=== PATIENT | male | born 1955 | race Caucasian/White ===

== ENCOUNTER 2023-08-22 07:18 | Inpatient (IN) ==
--- NOTE | 2023-08-22 07:47 | Emergency Department Note ---
Impression & Plan Complete heart block ED Provider Note Diagnosis: Complete heart block Disposition: Admission CHIEF COMPLAINT: Short of breath dizziness HPI: Patient is a 68-year-old male presenting with complaint of dizziness and shortness of breath. Patient states that his symptoms are worse with exertion. Patient states that he has felt off for approximately 1 month's time but over the past 2 days his who is a nurse has been checking his blood pressure and the automatic cuff has been stating that his pulse has been low. Patient did not take his blood pressure medications of lisinopril and atenolol this morning. Patient is not ate or drink anything since last evening. Patient does not have a general adoption social worker that he follows with regularly. Patient's father at approximately the patient's current age required a pacemaker for unknown reason. PAST MEDICAL HISTORY: See Below PAST SURGICAL HISTORY: See Below SOCIAL HISTORY: See Below HOME MEDICATIONS: See Below ALLERGIES: See Below VITALS: See Below PHYSICAL EXAMINATION: GENERAL: Well appearing, well nourished, NAD, non-toxic. EYE EXAM: Normal conjunctiva. OROPHARYNX: Moist mucus membranes. Grossly normal dentition. NECK: Supple, LUNGS: Clear to auscultation. Normal chest wall mechanics. HEART: Bradycardic ABDOMEN: Abdomen soft, non-tender, normo-active bowel sounds, no masses, no rebound or guarding BACK: No CVA TTP. SKIN: No rashes and no bruising. UPPER EXTREMITIES: Upper extremities are grossly normal LOWER EXTREMITIES: Grossly normal, no edema. NEURO EXAM: A&O x3,, normal speech, moves all 4 extremities PSYCH: Cooperative MEDICAL DECISION MAKING: Reviewed external documents: History obtained from: Patient, ER Course: Patient is a 68-year-old male presenting with complaint of feeling short of breath and dizziness. Patient states his blood pressure cuff yesterday started telling him that his pulse was low. Patient upon being hooked up to the fish warden in the emergency room found to be in complete heart block. Patient had stable blood pressure admitted to medicine service. Patient has no electrolyte abnormalities to cause the bradycardia at this time. Patient not taking any of his blood pressure medications this morning and has not ate or drink anything this morning. Labs (independently interpreted) are significant for: Potassium normal Imaging results (independently interpreted): Chest x-ray clear EKG interpretation (independently interpreted): complete heart block Medications given: Normal saline Consultants: Cardiology Dr. Guerra, discussed patient's EKG presentation stable vital signs other than heart rate recommends adding Lyme testing and thyroid testing on to patient's workup as well as keeping him n.p.o. Admission to medicine service will see in consult and plan for pacemaker as needed Medical decision rules: Chronic conditions affecting care: Triage Nursing notes reviewed and agree them. Vital Signs: reviewed and remarkable for: no significant abnormalities Critical care; 35 minutes, this time does not include time for procedures. Past Med/Surg History Medical History Obesity HLD (hyperlipidemia) Complete heart block Surgical History No pertinent past surgical history Family History Father Coronary heart disease Social History Smoking Status: Never smoker Preferred Language: Bengali Feels Safe at Home: Yes Allergies Allergies Allergy/AdvReac Type Severity Reaction Status Date / Time No Known Allergies Allergy Unverified 08/22/23 09:22 Home Meds Home Medications Medication Instructions Recorded Confirmed Nugenix 2 cap PO QAM 08/22/23 08/22/23 atenolol 50 mg tablet 50 mg PO DAILY 08/22/23 08/22/23 atorvastatin 40 mg tablet 40 mg PO DAILY 08/22/23 08/22/23 lisinopril 20 1 tab PO DAILY 08/22/23 08/22/23 mg-hydrochlorothiazide 25 mg tablet omeprazole 40 mg capsule,delayed 40 mg PO DAILY 08/22/23 08/22/23 release phentermine 8 mg tablet (Lomaira) 8 mg PO TID 08/22/23 08/22/23 tadalafil 5 mg tablet (Cialis) 5 mg PO DAILY PRN Unknown 08/22/23 08/22/23 Results & Data (ED) Vital Signs Vital Signs - 24 hr 08/22/23 07:25 08/22/23 07:40 08/22/23 07:47 Temperature 37.0 C Temperature Source Temporal Artery Scan Pulse Rate 33 L 33 L Pulse Rate [Right Finger] Pulse Rhythm Pulse Rhythm [Right Finger] Pulse Strength [Right Finger] Respiratory Rate 20 Respiratory Effort / Characteristics Non-Labored Spontaneous Respiratory Depth Normal Respiratory Pattern Regular Blood Pressure 177/118 H Blood Pressure [Right Arm] Blood Pressure Mean 137 Blood Pressure Mean [Right Arm] Blood Pressure Position [Right Arm] Pulse Oximetry 94 Oxygen Delivery Method Room Air Room Air Sepsis Recent Fever Within 48 Hours No Sepsis New/Unexplained Change in Mental Status N/A Sepsis Action Taken by Nursing No Action Required 08/22/23 07:47 08/22/23 07:47 08/22/23 07:47 Temperature 36.7 C Temperature Source Oral Pulse Rate 33 L Pulse Rate [Right Finger] 33 L Pulse Rhythm Regular Pulse Rhythm [Right Finger] Regular Pulse Strength [Right Finger] Normal Respiratory Rate 20 20 Respiratory Effort / Characteristics Non-Labored Spontaneous Respiratory Depth Normal Respiratory Pattern Regular Blood Pressure Blood Pressure [Right Arm] 148/77 H Blood Pressure Mean Blood Pressure Mean [Right Arm] 100 Blood Pressure Position [Right Arm] Semi-fowlers Pulse Oximetry 96 98 96 Oxygen Delivery Method Room Air Room Air Room Air Sepsis Recent Fever Within 48 Hours Sepsis New/Unexplained Change in Mental Status Sepsis Action Taken by Nursing Laboratory Data 08/22/23 07:45 08/22/23 07:45 Lab Results 08/22/23 Range/Units 07:45 WBC 8.36 (4.8-10.8) K/ul RBC 4.72 (4.70-6.10) M/uL Hgb 14.8 (14.0-18.0) g/dl Hct 41.9 L (42.0-52.0) % MCV 88.8 (80.0-100.0) fL MCH 31.4 (25.0-34.0) pg MCHC 35.3 (32.0-36.0) g/dL RDW Std Deviation 41.0 (36.4-46.3) fL RDW Coeff of Kimani 12.6 (11.5-14.5) % Plt Count 267 (130-400) K/uL MPV 9.9 (9.4-12.4) fL Immature Gran % (Auto) 0.6 % Neut % (Auto) 57.2 % Lymph % (Auto) 29.2 % [place] % (Auto) 8.7 % Eos % (Auto) 3.2 % Baso % (Auto) 1.1 % Neut # (Auto) 4.78 (1.40-6.50) K/uL Lymph # (Auto) 2.44 (1.20-3.40) K/uL [place] # (Auto) 0.73 H (0.11-0.59) K/uL Eos # (Auto) 0.27 (0.00-0.50) K/uL Baso # (Auto) 0.09 (0.00-0.20) K/uL Immature Gran # (Auto) 0.05 (0.01-0.20) K/uL PT 11.1 (9.0-12.0) Seconds INR 1.0 (0.9-1.1) APTT 26 (21-31) Seconds PTT Ratio 1.0 Sodium 131 L (136-145) mmol/L Potassium 3.6 (3.5-5.1) mmol/L Chloride 98 (98-107) mmol/L Carbon Dioxide 23 (21-32) mmol/L Anion Gap 10 (3-11) BUN 10 (6-23) mg/dl Creatinine 0.94 (0.6-1.4) mg/dl Est Cr Clr Drug Dosing 95.3 ml/min Est GFR ( Amer) 96.2 ml/min Est GFR (Non-Af Amer) 83.0 ml/min BUN/Creatinine Ratio 10.6 (10-20) Glucose 116 H (70-99(Fasting)) mg/dl Calcium 8.7 (8.6-10.3) mg/dl Magnesium 1.7 (1.7-2.4) mg/dl Total Bilirubin 1.2 H (0.2-1.0) mg/dl AST 35 (13-39) U/L ALT 49 (7-52) U/L Alkaline Phosphatase 58 (34-104) U/L Troponin I High Sens 13.0 (0-20) pg/ml Total Protein 6.8 (6.0-8.3) gm/dl Albumin 4.3 (3.4-5.0) gm/dl Globulin 2.5 (2.5-4.0) gm/dl Albumin/Globulin Ratio 1.7 (0.9-2) TSH 2.013 (0.300-4.500) uIu/ml Lyme Disease Screen Negative (Negative) Administered Medications Discontinued Medications Sodium Chloride (Nss) 500 mls @ 999 mls/hr IV .Q31M STA Stop: 08/22/23 08:10 Last Infusion: 08/22/23 11:20 Dose: Infused Documented By: Admin: 08/22/23 08:01 Dose: 999 mls/hr Documented By: BISHOP Imaging Data Radiologist's Impression: Chest X-Ray 08/22/23 07:40 SINGLE VIEW CHEST CLINICAL HISTORY: Atypical chest pain. FINDINGS: An AP, portable, upright chest radiograph is obtained. No prior studies are available for comparison at the time of dictation. The heart is enlarged. There is pulmonary vascular congestion. Scarring/atelectasis is noted at the lung bases. No airspace consolidation or large pleural effusion is identified. No pneumothorax is seen. The skeletal structures are osteopenic. There are chronic/healed right-sided rib fractures. Arthritic change is noted in the shoulders. IMPRESSION: Cardiomegaly with pulmonary vascular congestion. ACT 112: Negative or not required by law. Electronically signed by: Paul Acosta M.D. 08/22/2023 7:51 AM Discharge Plan Visit Data Chief Complaint: Shortness of Breath/Dyspnea Stated Complaint: DIZZY,SOB,LOW PULSE ED Provider: Geoffrey Britton Discharge Problem: Complete heart block Patient Disposition: Admitted As Inpatient Discharge Instructions Interventions: ED Discharge Assessment Last Done: 08/22/23 10:07
--- NOTE | 2023-08-22 07:53 | XRay Report ---
SINGLE VIEW CHEST CLINICAL HISTORY: Atypical chest pain. FINDINGS: An AP, portable, upright chest radiograph is obtained. No prior studies are available for c omparison at the time of dictation. The heart is enlarged. There is pulmonary vascular congestion. Sc arring/atelectasis is noted at the lung bases. No airspace consolidation or large pleural effusion is identified. No pneumothorax is seen. The skeletal structures are osteopenic. There are chronic/heale d right-sided rib fractures. Arthritic change is noted in the shoulders. IMPRESSION: Cardiomegaly with pulmonary vascular congestion. ACT 112: Negative or not required by law. Electronically signed by: Paul Acosta M.D. 08/22/2023 7:51 AM
[2023-08-22] MEDS: SODIUM CHLORIDE 0.9% 500 ML IV STA (08:01)
[2023-08-22 08:02] LABS: Basophils # (auto) 0.09 K/uL (0.00-0.20); Basophils % (auto) 1.1 %; Eosinophils # (auto) 0.27 K/uL (0.00-0.50); Eosinophils % (auto) 3.2 %; Hematocrit (blood only) 41.9 % (42.0-52.0); Hemoglobin 14.8 g/dl (14.0-18.0); Immature Granulocytes # (auto) 0.05 K/uL (0.01-0.20); Immature Granulocytes % (auto) 0.6 %; Lymphocytes # (auto) 2.44 K/uL (1.20-3.40); Lymphocytes % (auto) 29.2 %; Mean Corpuscular Hemoglobin 31.4 pg (25.0-34.0); Mean Corpuscular Hgb Conc 35.3 g/dL (32.0-36.0); Mean Corpuscular Volume 88.8 fL (80.0-100.0); Mean Platelet Volume 9.9 fL (9.4-12.4); Monocytes # (auto) 0.73 K/uL (0.11-0.59); Monocytes % (auto) 8.7 %; Neutrophils # (auto) 4.78 K/uL (1.40-6.50); Neutrophils % (auto) 57.2 %; Platelet Count 267 K/uL (130-400); RDW Coefficient of Variation 12.6 % (11.5-14.5); Red Blood Count 4.72 M/uL (4.70-6.10); White Blood Count 8.36 K/ul (4.8-10.8)
[2023-08-22 08:06] LABS: Partial Thromboplastin Time 26 Seconds (21-31); Prothrombin Time 11.1 Seconds (9.0-12.0)
[2023-08-22 08:37] LABS: Albumin Level 4.3 gm/dl (3.4-5.0); Bilirubin,Total 1.2 mg/dl (0.2-1.0); Calcium 8.7 mg/dl (8.6-10.3); Magnesium 1.7 mg/dl (1.7-2.4); Potassium 3.6 mmol/L (3.5-5.1)
[2023-08-22 08:43] LABS: Albumin Globulin Ratio 1.7 (0.9-2); BUN Creatinine Ratio 10.6 (10-20); Creatinine Clr Calc Pharmacy 95.3 ml/min; Est GFR (African American) 96.2 ml/min; Globulin 2.5 gm/dl (2.5-4.0); Total Protein 6.8 gm/dl (6.0-8.3)
[2023-08-22] MEDS ORDERED: MAGNESIUM HYDROXIDE SUSP 30 ML UDC PO PRN (08:55)
[2023-08-22] MEDS ORDERED: POLYETHYLENE (MIRALAX) 17 GM PACK PO PRN (08:55)
[2023-08-22] MEDS ORDERED: ALUMINUM/MAGNESIUM SUSP 30 ML UDC PO PRN (08:55)
[2023-08-22] MEDS ORDERED: ONDANSETRON INJ 2 MG/ML 2 ML VIAL IV PRN (08:55)
--- NOTE | 2023-08-22 09:03 | History & Physical Report ---
Date of Service August 22, 2023 Assessment & Plan (1) Complete heart block: (2) Hypertension: (3) GERD (gastroesophageal reflux disease): (4) HLD (hyperlipidemia): (5) Obesity: Plan Mr. Mason is a 68-year-old male that presented to the ED today in complete heart block on heart monitor. PMH includes HTN, GERD, and obesity. Takes atenolol and lisinopril which he did not take this morning. Patient was recently started on phentermine term been for weight management over the last month and reports having insomnia and dizziness/lightheadedness since starting that medication. Lyme serology negative. Father young s/p cabg and had a pacemaker. ECHO EF 65 to 70%, mild concentric LVH, mild MR and trace TR. Patient will be admitted for further evaluation and management of his newly diagnosed complete heart block. Will admit to PCU, place temporary pacer pads, keep NPO, and await cardiology consultation. Complete heart block: Acute Admit to PCU No previous cardiac history outside of HTN Father had open heart sx and a pacer; at a young age. ECHO EF 65-70%, mild concentric LVH, mild MR, trace TR CXR noted pulmonary vascular congestion Did not take beta-blockers this morning Troponin negative Keep NPO; last eaten 08/20 pacer pads placed Lymes serology negative and TSH pending Cardiology Consultation placed; discussed with Dr. Guerra HTN: Chronic Takes atenolol and lisinopril/HCTZ; hold for now HLD: Chronic Last lipid panel 06/19/23; TG 219, HDL 52, LDL 50 Takes atorvastatin; continue GERD: Chronic Takes omeprazole; continue Obesity: Chronic Takes Phentermine which was recently started in June around when his symptoms started; hold Disposition: PCP: Dr. Curtis Code Status: Full Code VTE Prophylaxis: Teds and SCDs for now I spent a total of 76 minutes coordinating, documenting, and providing care for this patient excluding time spent in the performance of separately billed services. All of the aforementioned completed while collaborating with the assigned attending physician for a full treatment plan. Please see their addendum for further details. History of Present Illness Chief Complaint: SOB/bradyacardia Primary Care Provider: Ravi Curtis MD Mr. Mason is a 68-year-old male that presented to the ED today with complaints of shortness of breath, NICHOLS, dizziness and bradycardia that was identified with a home blood pressure monitoring cuff. He said that his symptoms started in July and he first noticed it when he was fishing and getting out of the [place] where he became dizzy. He did not think much of this and went along with his normal days. Over the weekend his shortness of breath worsened along with worsening lightheadedness. His is a nurse and took his heart rate manually and noted it to be in the low 40s; for which they proceeded to the ER. Upon arrival to the ED patient found to be in complete heart block on heart monitor. Chest x-ray indicates pulmonary vascular congestion. Patient was given 500 NSB. Additional PMH includes HTN, GERD, and obesity. Patient takes atenolol and lisinopril which he did not take this morning. Patient was recently started on phentermine term been for weight management over the last month and reports having insomnia and dizziness/lightheadedness since starting that medication. Patient notes that he is outside routinely and recalls 2 tick bites over the last few weeks. Lyme serology negative. Last TSH 06/19/2023 1.280. Father young s/p cabg and had a pacemaker. MOther last year with no known cardiac history. Denies tobacco use, recreational drug use. Social alochol use with a few beers on Wednesdays and over the weekend. He rides motorcycle and loves working in his yard. ECHO performed in the ER indicates EF 65 to 70%, mild concentric LVH, mild MR and trace TR. No leukocytosis, otherwise electrolytes unremarkable, no transaminitis, troponin negative. TSH pending. Patient has not had any oral intake this morning. Currently patient denies headache, visual or auditory changes, chest pain, palp itations, abdominal pain or tenderness, urinary or bowel changes, recent falls or trauma. Patient will be admitted for further evaluation and management of his newly diagnosed complete heart block. Will admit to PCU, place temporary pacer pads, keep NPO, and await cardiology consultation. Allergies Allergy/AdvReac Type Severity Reaction Status Date / Time No Known Allergies Allergy Unverified 08/22/23 09:22 Home Medications Medication Instructions Recorded Confirmed Type Nugenix 2 cap PO QAM 08/22/23 08/22/23 History atenolol 50 mg tablet 50 mg PO DAILY 08/22/23 08/22/23 History atorvastatin 40 mg tablet 40 mg PO DAILY 08/22/23 08/22/23 History lisinopril 20 1 tab PO DAILY 08/22/23 08/22/23 History mg-hydrochlorothiazide 25 mg tablet omeprazole 40 mg capsule,delayed 40 mg PO DAILY 08/22/23 08/22/23 History release phentermine 8 mg tablet (Lomaira) 8 mg PO TID 08/22/23 08/22/23 History tadalafil 5 mg tablet (Cialis) 5 mg PO DAILY PRN Unknown 08/22/23 08/22/23 History Past Med/Surg History Medical History Obesity HLD (hyperlipidemia) Complete heart block Surgical History No pertinent past surgical history Family History Father Coronary heart disease Social History Smoking Status: Never smoker Hx Substance Use: No Preferred Language: Italian Feels Safe at Home: Yes Review of Systems Review of Systems: Neuro: (-) Falls, trauma, slurred speech HEENT: (-) MÉNDEZ, (+) dizziness, (-) dysphagia, visual or auditory changes CV: (-) CP, palpitations, swelling Resp: (-) SOB GI: (-) appetite changes, N/V/D, bowel changes : (-) urinary changes Skin: (-) rashes Psych: (-) anxiety, depression Physical Exam Physical Exam: Neuro: AAOx4, PERRLA, no aphagia, memory changes, CNII-XII grossly intact HEENT: head normocephalic, moist mucus membranes CV: Irregular heart tones, (-) M/G/R, (-) edema, cap refill < 3 seconds Resp: Lungs CTA in all quiroz. On RA GI: Abdomen large S/NT/ND, Ax4 bowel sounds, (-) CVA tenderness Musculoskeletal: 5/5 B/L UE strength, 5/5 B/L LE strength. No gait disturbance Skin: (-) rashes , (-) erythema. Psych: euthymic mood Results & Data Results & Data Vital Signs (Past 12 Hours) Vital Signs Temp Pulse Pulse Resp BP BP Pulse Ox 08/22/23 07:47 33 L 20 96 08/22/23 07:47 36.7 C 33 L 20 148/77 H 98 08/22/23 07:47 96 08/22/23 07:47 08/22/23 07:40 33 L 08/22/23 07:25 37.0 C 33 L 20 177/118 H 94 O2 Del Method 08/22/23 07:47 Room Air 08/22/23 07:47 Room Air 08/22/23 07:47 Room Air 08/22/23 07:47 Room Air 08/22/23 07:40 08/22/23 07:25 Room Air Laboratory Results Short CBC 08/22/23 Range/Units 07:45 WBC 8.36 (4.8-10.8) K/ul Hgb 14.8 (14.0-18.0) g/dl Hct 41.9 L (42.0-52.0) % Plt Count 267 (130-400) K/uL BMP 08/22/23 07:45 Sodium 131 L Potassium 3.6 Chloride 98 Carbon Dioxide 23 BUN 10 Creatinine 0.94 Glucose 116 H Calcium 8.7 Liver Function 08/22/23 Range/Units 07:45 Total Bilirubin 1.2 H (0.2-1.0) mg/dl AST 35 (13-39) U/L ALT 49 (7-52) U/L Alkaline Phosphatase 58 (34-104) U/L Albumin 4.3 (3.4-5.0) gm/dl Diagnostic Findings Chest X-Ray 08/22/23 07:40 SINGLE VIEW CHEST CLINICAL HISTORY: Atypical chest pain. FINDINGS: An AP, portable, upright chest radiograph is obtained. No prior studies are available for comparison at the time of dictation. The heart is enlarged. There is pulmonary vascular congestion. Scarring/atelectasis is noted at the lung bases. No airspace consolidation or large pleural effusion is identified. No pneumothorax is seen. The skeletal structures are osteopenic. There are chronic/healed right-sided rib fractures. Arthritic change is noted in the shoulders. IMPRESSION: Cardiomegaly with pulmonary vascular congestion. ACT 112: Negative or not required by law. Electronically signed by: Paul Acosta M.D. 08/22/2023 7:51 AM Code Status & VTE Plan Code Status Full code in the event of cardiac respiratory arrest VTE Prophylaxis Plan VTE Prophylaxis will be ordered: Yes Supervising Physician Co-Signing Physician Notes Patient was seen and examined independently at bedside. Chart reviewed. Case discussed with Nicole JACKSON and agree with the documentation above. In summary, this is a 68 year old male who presented with symptomatic complete heart block with HR in 30s. Last taken atenolol yesterday morning. Lyme screen negative, TSH normal. Electrolytes normal. Echo reviewed. Seen by cardiology and plan for pacemaker noted. Remains npo for the same. Patient lying on bed, with no symptoms during my encounter. Family at bedside. Rest as per the note above. On exam- General: Lying comfortably in bed, not in distress, on room air HEENT: EOMI, ASHLEY, MMM Chest: Clear breath sounds bilaterally, no wheezes or crackles CVS: bradycardic Abdomen: Soft, non tender, not distended, normal bowel sounds Neuro: Awake, alert, oriented, conversing well, non focal Extremities: No cyanosis, clubbing or edema
[2023-08-22 09:08] LABS: Thyroid Stimulating Hormone 2.013 uIu/ml (0.300-4.500)
--- NOTE | 2023-08-22 11:49 | Cardiology Consultation ---
Date of Consultation August 22, 2023 Assessment & Plan (1) Complete heart block: (2) Hypertension: (3) Mild congestive heart failure: (4) Bicuspid aortic valve: Plan 68-year-old male with complete heart block. Chronically treated with beta- poly therapy, however, he has not received a dose of atenolol more than 24 hours he remains in complete heart block with ventricular rate in the low 30s. Otherwise, hemodynamically stable. Evidence of mild congestive heart failure likely related to low cardiac output in the setting of complete heart block. His TSH and Lyme screen are normal. No obvious reversible causes other than recent beta-poly therapy which has been held. Risk versus benefit of permanent pacemaker implantation discussed. Patient agreeable to proceed. Electrophysiology consulted for pacemaker implantation. Temporary transvenous pacemaker will be considered with any evidence of hemodynamic instability. Possible bicuspid aortic valve per echocardiogram. Recommend repeat limited study with attention to aortic valve morphology. Consider transesophageal echocardiogram in the future for further evaluation if needed. There is no evidence of aortic stenosis or ascending aortic enlargement. History of Present Illness Reason for Consultation: Complete heart block Requesting Physician: Nicole JACKSON Attending Physician: Zhang Jacobs MD History of Present Illness 68-year-old male presented to the emergency department today with complaints of shortness of breath, dyspnea on exertion, dizziness, and low heart rate identified with a home blood pressure monitor. Symptoms progressive over the past 72 hours. Asymptomatic at rest. Borderline hypertensive. Reports another episode of lightheadedness occurring during the first week of July which spontaneously resolved. Currently, patient resting comfortably. Blood pressure 150s/80s. Heart rate in the 30s. Telemetry demonstrating complete heart block with ventricular escape in a right bundle branch block pattern. Denies any lightheadedness, chest discomfort, or shortness of breath at rest. No recent orthopnea, PND, or lower extremity edema. Denies personal history of coronary disease, congestive heart failure, or rheumatic fever as a child. Chronically treated with atenolol 50 mg daily. Last dose of atenolol yesterday at approximately 8 AM. Voices concern regarding family history of pacemaker implantation involving his father during his 60s. Allergies Allergy/AdvReac Type Severity Reaction Status Date / Time No Known Allergies Allergy Unverified 08/22/23 09:22 Home Medications Medication Instructions Recorded Confirmed Type Nugenix 2 cap PO QAM 08/22/23 08/22/23 History atenolol 50 mg tablet 50 mg PO DAILY 08/22/23 08/22/23 History atorvastatin 40 mg tablet 40 mg PO DAILY 08/22/23 08/22/23 History lisinopril 20 1 tab PO DAILY 08/22/23 08/22/23 History mg-hydrochlorothiazide 25 mg tablet omeprazole 40 mg capsule,delayed 40 mg PO DAILY 08/22/23 08/22/23 History release phentermine 8 mg tablet (Lomaira) 8 mg PO TID 08/22/23 08/22/23 History tadalafil 5 mg tablet (Cialis) 5 mg PO DAILY PRN Unknown 08/22/23 08/22/23 History Patient History Medical History Obesity HLD (hyperlipidemia) Complete heart block Surgical History No pertinent past surgical history Family History Father Coronary heart disease Social History Smoking Status: Never smoker Preferred Language: Slovak Feels Safe at Home: Yes Review of Systems Review of Systems: All systems reviewed & are unremarkable except as noted in Subjective Physical Exam Constitutional: well developed and well nourished; no acute distress Respiratory: normal respiratory effort; no respiratory distress, no labored breathing and no retractions Auscultation: + crackles (Bases bilateral); no rhonchi and no wheezes Cardiovascular: Rate/Rhythm: regular rate, regular rhythm and + bradycardic Heart Sounds: normal S1, normal S2 and + murmur (Soft, 1/6 systolic ejection murmur) Vessels: radial pulses present; no JVD and no carotid bruit Gastrointestinal (Abdomen): Inspection/Auscultation: abdomen normal to inspection and normal bowel sounds; abdomen not distended Percussion/Palpation: abdomen soft; abdomen nontender, no guarding and abdomen not rigid Neurologic: CN's II-XI intact bilaterally and moves all extremities; no focal motor deficits Psychiatric: A+Ox3, euthymic affect Results & Data Vital Signs (Past 12 Hours) Vital Signs Temp Pulse Pulse Resp BP BP Pulse Ox 08/22/23 10:07 36.7 C 33 L 20 155/85 H 96 08/22/23 07:47 33 L 20 96 08/22/23 07:47 36.7 C 33 L 20 148/77 H 98 08/22/23 07:47 96 08/22/23 07:47 08/22/23 07:40 33 L 08/22/23 07:25 37.0 C 33 L 20 177/118 H 94 O2 Del Method 08/22/23 10:07 Room Air 08/22/23 07:47 Room Air 08/22/23 07:47 Room Air 08/22/23 07:47 Room Air 08/22/23 07:47 Room Air 08/22/23 07:40 08/22/23 07:25 Room Air Laboratory Results Cardiac Enzymes 08/22/23 Range/Units 07:45 AST 35 (13-39) U/L Troponin I High Sens 13.0 (0-20) pg/ml Coagulation 08/22/23 Range/Units 07:45 PT 11.1 (9.0-12.0) Seconds APTT 26 (21-31) Seconds CBC 08/22/23 Range/Units 07:45 WBC 8.36 (4.8-10.8) K/ul RBC 4.72 (4.70-6.10) M/uL Hgb 14.8 (14.0-18.0) g/dl Hct 41.9 L (42.0-52.0) % Plt Count 267 (130-400) K/uL Neut # (Auto) 4.78 (1.40-6.50) K/uL Lymph # (Auto) 2.44 (1.20-3.40) K/uL [place] # (Auto) 0.73 H (0.11-0.59) K/uL Eos # (Auto) 0.27 (0.00-0.50) K/uL Baso # (Auto) 0.09 (0.00-0.20) K/uL Comprehensive Metabolic Panel 08/22/23 Range/Units 07:45 Sodium 131 L (136-145) mmol/L Potassium 3.6 (3.5-5.1) mmol/L Chloride 98 (98-107) mmol/L Carbon Dioxide 23 (21-32) mmol/L BUN 10 (6-23) mg/dl Creatinine 0.94 (0.6-1.4) mg/dl Glucose 116 H (70-99(Fasting)) mg/dl Calcium 8.7 (8.6-10.3) mg/dl AST 35 (13-39) U/L ALT 49 (7-52) U/L Alkaline Phosphatase 58 (34-104) U/L Total Protein 6.8 (6.0-8.3) gm/dl Albumin 4.3 (3.4-5.0) gm/dl Intake and Output 08/21/23 08/22/23 08/22/23 22:59 06:59 14:59 Intake Total 500 / 500 Balance 500 / 500 Intake: IV 500 / 500 Sodium Chloride 0.9% 500 ml @ 500 / 500 999 mls/hr IV .Q31M STA Rx#: [id number] Other: Weight 114.5 kg Weight Measurement Method Chair Scale Patient Weight 08/23/23 06:59 Weight 114.5 kg (2) Hypertension Hypertension type: primary hypertension Qualified Code(s): I10 - Essential (primary) hypertension
--- NOTE | 2023-08-22 13:01 | Pre Anesthesia Assessment ---
Date of Service August 22, 2023 Pre Sedation Assessment Vital Signs Temp Pulse Pulse Resp BP BP Pulse Ox 08/22/23 12:10 08/22/23 10:07 36.7 C 33 L 20 155/85 H 96 08/22/23 07:47 33 L 20 96 08/22/23 07:47 36.7 C 33 L 20 148/77 H 98 08/22/23 07:47 96 08/22/23 07:47 08/22/23 07:40 33 L 08/22/23 07:25 37.0 C 33 L 20 177/118 H 94 O2 Del Method 08/22/23 12:10 Room Air 08/22/23 10:07 Room Air 08/22/23 07:47 Room Air 08/22/23 07:47 Room Air 08/22/23 07:47 Room Air 08/22/23 07:47 Room Air 08/22/23 07:40 08/22/23 07:25 Room Air Cardiovascular + bradycardic Respiratory normal respiratory effort, lungs clear to auscultation Pre-Sedation Airway Assessment Smoking Status: Never smoker Hx Sleep Apnea: No Hx Difficult Intubation: No Short, Thick Neck: No Thyromental Distance: < 3.5 Finger Breadths Oral Cavity: + Dental Abnormalities Mallampati Class: II ASA: ASA3 NPO Status Date of Last Intake of Fluids: 08/21/23 Date of Last Intake of Solid Food: 08/21/23 Procedure Planning Contraindications for Sedation: none Current Medications Reviewed: Yes Notes The planned sedation has been discussed with the patient. Informed Consent was obtained. I have identified the patient, determined the appropriateness of sedation and have assessed the patient immediately prior to the procedure. All medicine(s) and interventions are by my order.
--- NOTE | 2023-08-22 13:01 | History & Physical Bridge Note ---
Date of Service August 22, 2023 History & Physical Bridge Note I have examined the patient, reviewed the History & Physical and in the interval since the performance of the History & Physical I have noted the following changes of clinical significance: pt with CHB recommend dual chamber pacemaker; discussed the procedure and potential risks-pt expressed an understanding and consents signed.
[2023-08-22] MEDS: VANCOMYCIN HCL 1000MG/20ML VIAL ONE (13:53)
[2023-08-22] MEDS: LIDOCAINE 1% LOCAL 20 ML VIAL ONE (13:53)
[2023-08-22] MEDS: ceFAZolin 330 MG/ML 1 GM VIAL ONE (13:54)
[2023-08-22] MEDS: fentaNYL citrate PF 100 MCG/2 ML VIAL ONE ×2 (14:49→15:12)
[2023-08-22] MEDS: MIDAZOLAM HCL 5 MG/ML 1 ML VIAL ONE (14:49)
--- NOTE | 2023-08-22 15:20 | Post Anesthesia Assessment ---
Date of Service August 22, 2023 Post Sedation Assessment Vital Signs Temp Pulse Pulse Resp BP BP Pulse Ox 08/22/23 13:05 33 L 18 164/59 H 96 08/22/23 12:10 08/22/23 10:07 36.7 C 33 L 20 155/85 H 96 08/22/23 07:47 33 L 20 96 08/22/23 07:47 36.7 C 33 L 20 148/77 H 98 08/22/23 07:47 96 08/22/23 07:47 08/22/23 07:40 33 L 08/22/23 07:25 37.0 C 33 L 20 177/118 H 94 O2 Del Method 08/22/23 13:05 Room Air 08/22/23 12:10 Room Air 08/22/23 10:07 Room Air 08/22/23 07:47 Room Air 08/22/23 07:47 Room Air 08/22/23 07:47 Room Air 08/22/23 07:47 Room Air 08/22/23 07:40 08/22/23 07:25 Room Air Recovery Score Activity: Moves 4 extremities Respiration: Deep Breath/Cough Circulation: +/-20% PreAnes Value Consciousness: Fully Awake Oxygen Saturation: > 92% On Room Air Discharge Sedation Level of Care: Fast Track Phase II Post Sedation Plan On clinical assessment, the patient appears to have tolerated the sedation without complications. Patient is recovering as anticipated. Patient will continue to be monitored by nursing and may be discharged when sedation discharge criteria are met per below protocol. Upon Completions of procedure up to 15 minutes continue every 5 minute vital signs and the P.A.R. score; then discharge to a Phase I or Fast Track to Phase II per the following guidelines: * Discharge Patient to appropriate Phase II area if PAR is 8 or greater or return to pre- procedure baseline. The post - procedure orders will be as directed. * If PAR score is less than 8 or not return to pre-procedure baseline then patient will follow Phase I monitoring till PAR is reached for Phase II. The Phase I may be done in procedure room or may call to secure a Phase I area. * If naloxone or flumazenil are used for reversal, hold in Phase I for continued monitoring from when last reversal dose was given for a minimum of 60 minutes or longer pending the nurse and/or physician discretion of patient condition before discharge to Phase II. Please call the Sedation Physician to re-evaluate and complete post-note for discharge to Phase II area. Do NOT discharge from procedure sedation or Phase 1 until post- sedation evaluation note is complete by procedure /sedation MD Sedation Discharge Instructions to be given to the patient at discharge to home.
[2023-08-22] MEDS: MIDAZOLAM HCL 1 MG/ML 2ML VIAL ONE (16:03)
[2023-08-22] MEDS: ATROPINE SULFATE 0.1 MG/ML 10ML SYR IV ONE (16:03)
[2023-08-22] MEDS: WATER, STERILE FOR INJ 10 ML VIAL ONE (16:03)
[2023-08-22] MEDS ORDERED: hydrALAZINE HCL 20 MG/ML VIAL IV PRN (16:37)
[2023-08-22] MEDS: lisinopril 20 MG TAB PO SCH (17:11)
--- NOTE | 2023-08-22 17:40 | XRay Report ---
XR chest 1V portable HISTORY: s/p ppm ensure no ptx COMPARISON: Chest 08/22/2023. FINDINGS: Interval placement of a left-sided dual-chamber pacemaker. The leads appear intact. No pneu mothorax. The heart remains enlarged. There are old, healed right-sided rib fractures. Mild pulmonary vascular congestion without overt edema. This remains unchanged. No pleural effusions. There is an o ld right clavicle fracture. IMPRESSION: 1. Left-sided pacemaker. No pneumothorax. 2. Cardiomegaly and mild congestive change persist. ACT 112: Negative or not required by law. Electronically signed by: Brennan Escamilla M.D. 08/22/2023 5:39 PM
[2023-08-22] MEDS: ACETAMINOPHEN 325 MG TAB PO PRN (21:15)
[2023-08-22] MEDS: oxyCODONE HCL IR 5 MG TAB (IMMEDIATE RELEASE) PO PRN (23:44)
[2023-08-23 07:26] LABS: Hematocrit (blood only) 39.9 % (42.0-52.0); Hemoglobin 13.8 g/dl (14.0-18.0); Mean Corpuscular Hemoglobin 30.5 pg (25.0-34.0); Mean Corpuscular Hgb Conc 34.6 g/dL (32.0-36.0); Mean Corpuscular Volume 88.3 fL (80.0-100.0); Mean Platelet Volume 9.9 fL (9.4-12.4); Platelet Count 205 K/uL (130-400); RDW Coefficient of Variation 12.6 % (11.5-14.5); RDW Standard Deviation 40.7 fL (36.4-46.3); Red Blood Count 4.52 M/uL (4.70-6.10); White Blood Count 7.05 K/ul (4.8-10.8)
[2023-08-23 07:54] LABS: Albumin Globulin Ratio 1.7 (0.9-2); Albumin Level 3.7 gm/dl (3.4-5.0); BUN Creatinine Ratio 11.8 (10-20); Bilirubin,Total 1.4 mg/dl (0.2-1.0); Calcium 8.1 mg/dl (8.6-10.3); Creatinine Clr Calc Pharmacy 116.7 ml/min; Est GFR (African American) 108.7 ml/min; Est GFR (Non-African American) 93.7 ml/min; Globulin 2.2 gm/dl (2.5-4.0); Magnesium 1.8 mg/dl (1.7-2.4); Potassium 3.5 mmol/L (3.5-5.1); Total Protein 5.9 gm/dl (6.0-8.3)
[2023-08-23] MEDS: PANTOprazole 40 MG TAB PO SCH (08:37)
[2023-08-23] MEDS: ATORVASTATIN 40 MG TAB PO SCH (08:37)
[2023-08-23] MEDS: FUROSEMIDE INJ 20 MG/2 ML VIAL IV ONE (09:40)
--- NOTE | 2023-08-23 10:13 | Cardiology Progress Note ---
Date of Service August 23, 2023 Assessment & Plan (1) Complete heart block: (2) Hypertension: (3) Mild congestive heart failure: (4) Bicuspid aortic valve: (5) Pacemaker: Plan 68-year-old male with complete heart block status post permanent pacemaker implantation. No complications. Mild, persistent pulmonary vascular congestion on x-ray. Recommend 20 mg of IV furosemide this morning. Discontinue atenolol in favor of Toprol-XL 25 mg daily. Possible bicuspid aortic valve per echocardiogram. Recommend repeat limited study with attention to aortic valve morphology as outpatient. Consider transesophageal echocardiogram in the future for further evaluation if needed. There is no evidence of aortic stenosis or ascending aortic enlargement. Outpatient wound check and pacemaker interrogation in 1 week. Cardiology follow-up in 2 to 4 weeks. Admission and Anticipated Discharge Date Admission Date: August 22, 2023 Subjective 68-year-old male presented with complete heart block. Permanent pacemaker implanted yesterday without complication. Telemetry reveals atrial sensed, ventricular paced rhythm at 82 bpm. Feeling much better today. Shortness of breath improved. Repeat chest x-ray demonstrating mild congestion. No pneumothorax. Review of Systems Review of Systems: All systems reviewed & are unremarkable except as noted in Subjective Physical Exam Constitutional: well developed and well nourished; no acute distress Respiratory: normal respiratory effort; no respiratory distress, no labored breathing and no retractions Auscultation: + crackles (Bases bilateral); no rhonchi and no wheezes Cardiovascular: Rate/Rhythm: regular rate, regular rhythm and + bradycardic Heart Sounds: normal S1, normal S2 and + murmur (Soft, 1/6 systolic ejection murmur) Vessels: radial pulses present; no JVD and no carotid bruit Gastrointestinal (Abdomen): Inspection/Auscultation: abdomen normal to inspection and normal bowel sounds; abdomen not distended Percussion/Palpation: abdomen soft; abdomen nontender, no guarding and abdomen not rigid Neurologic: CN's II-XI intact bilaterally and moves all extremities; no focal motor deficits Psychiatric: A+Ox3, euthymic affect Results & Data Vital Signs (Past 12 Hours) Vital Signs Temp Pulse Pulse Resp BP Pulse Ox O2 Del Method 08/23/23 08:36 37.0 C 82 16 136/78 95 Room Air 08/23/23 07:26 76 08/23/23 03:37 37.4 C 78 20 137/75 95 Room Air 08/22/23 23:17 37.0 C 88 22 158/85 H 96 Room Air 08/22/23 23:00 89 08/22/23 22:30 83 144/81 H Laboratory Results Cardiac Enzymes 08/23/23 Range/Units 06:12 AST 28 (13-39) U/L CBC 08/23/23 Range/Units 06:12 WBC 7.05 (4.8-10.8) K/ul RBC 4.52 L (4.70-6.10) M/uL Hgb 13.8 L (14.0-18.0) g/dl Hct 39.9 L (42.0-52.0) % Plt Count 205 (130-400) K/uL Comprehensive Metabolic Panel 08/23/23 Range/Units 06:12 Sodium 135 L (136-145) mmol/L Potassium 3.5 (3.5-5.1) mmol/L Chloride 103 (98-107) mmol/L Carbon Dioxide 24 (21-32) mmol/L BUN 9 (6-23) mg/dl Creatinine 0.76 (0.6-1.4) mg/dl Glucose 108 H (70-99(Fasting)) mg/dl Calcium 8.1 L (8.6-10.3) mg/dl AST 28 (13-39) U/L ALT 32 (7-52) U/L Alkaline Phosphatase 50 (34-104) U/L Total Protein 5.9 L (6.0-8.3) gm/dl Albumin 3.7 (3.4-5.0) gm/dl Intake and Output 08/22/23 08/23/23 08/23/23 22:59 06:59 14:59 Intake Total 240 / 1040 300 / 1040 Balance 240 / 1040 300 / 1040 Intake: Oral 240 / 540 300 / 540 Other: # Unmeasured Voids 2 2 Weight 112.3 kg Weight Measurement Method Built in [facility] (2) Hypertension Hypertension type: primary hypertension Qualified Code(s): I10 - Essential (primary) hypertension
[2023-08-23] MEDS: METOPROLOL SUCC 25MG EXT REL TAB PO SCH (11:05)
--- NOTE | 2023-08-23 12:39 | Electrocardiogram Report ---
Test Reason : Blood Pressure : / mmHG Vent. Rate : 086 BPM Atrial Rate : 086 BPM P-R Int : 212 ms QRS Dur : 144 ms QT Int : 412 ms P-R-T Axes : 000 -20 128 degrees QTc Int : 493 ms Atrial-sensed ventricular-paced rhythm with prolonged AV conduction Abnormal ECG When compared with ECG of 22-AUG-2023 07:32, (unconfirmed) Electronic ventricular pacemaker has replaced Idioventricular rhythm Vent. rate has increased BY 52 BPM Confirmed by Brock Fox ([id number]) on 08/23/2023 12:39:37 PM Referred By: REFERRED SELF Confirmed By:Brock Fox
--- NOTE | 2023-08-23 12:45 | Electrocardiogram Report ---
Test Reason : Blood Pressure : / mmHG Vent. Rate : 082 BPM Atrial Rate : 082 BPM P-R Int : 224 ms QRS Dur : 146 ms QT Int : 434 ms P-R-T Axes : 243 -16 129 degrees QTc Int : 507 ms Atrial-sensed ventricular-paced rhythm with prolonged AV conduction Low right atrial rhythm Abnormal ECG When compared with ECG of 22-AUG-2023 17:16, (unconfirmed) Vent. rate has decreased BY 4 BPM Confirmed by Brock Fox ([id number] on 08/23/2023 12:44:52 PM Referred By: REFERRED SELF Confirmed By:Brock Fox
[2023-08-23] MEDS: POTASSIUM CHLORIDE CRTAB 20 MEQ TABCR PO STA (13:38)
--- NOTE | 2023-08-23 13:44 | Discharge Summary ---
Date of Service August 23, 2023 Admission HPI Per Admitting Provider Mr. Mason is a 68-year-old male that presented to the ED today with complaints of shortness of breath, NICHOLS, dizziness and bradycardia that was identified with a home blood pressure monitoring cuff. He said that his symptoms started in July and he first noticed it when he was fishing and getting out of the [place] where he became dizzy. He did not think much of this and went along with his normal days. Over the weekend his shortness of breath worsened along with worsening lightheadedness. His is a nurse and took his heart rate manually and noted it to be in the low 40s; for which they proceeded to the ER. Upon arrival to the ED patient found to be in complete heart block on heart monitor. Chest x-ray indicates pulmonary vascular congestion. Patient was given 500 NSB. Additional PMH includes HTN, GERD, and obesity. Patient takes atenolol and lisinopril which he did not take this morning. Patient was recently started on phentermine term been for weight management over the last month and reports having insomnia and dizziness/lightheadedness since starting that medication. Patient notes that he is outside routinely and recalls 2 tick bites over the last few weeks. Lyme serology negative. Last TSH 06/19/2023 1.280. Father young s/p cabg and had a pacemaker. MOther last year with no known cardiac history. Denies tobacco use, recreational drug use. Social alochol use with a few beers on Wednesdays and over the weekend. He rides motorcycle and loves working in his yard. ECHO performed in the ER indicates EF 65 to 70%, mild concentric LVH, mild MR and trace TR. No leukocytosis, otherwise electrolytes unremarkable, no transaminitis, troponin negative. TSH pending. Patient has not had any oral intake this morning. Currently patient denies headache, visual or auditory changes, chest pain, palpitations, abdominal pain or tenderness, urinary or bowel changes, recent falls or trauma. Patient will be admitted for further evaluation and management of his newly diagnosed complete heart block. Will admit to PCU, place temporary pacer pads, keep NPO, and await cardiology consultation. Admission Exam Per Admitting Provider Neuro: AAOx4, PERRLA, no aphagia, memory changes, CNII-XII grossly intact HEENT: head normocephalic, moist mucus membranes CV: Irregular heart tones, (-) M/G/R, (-) edema, cap refill < 3 seconds Resp: Lungs CTA in all quiroz. On RA GI: Abdomen large S/NT/ND, Ax4 bowel sounds, (-) CVA tenderness Musculoskeletal: 5/5 B/L UE strength, 5/5 B/L LE strength. No gait disturbance Skin: (-) rashes , (-) erythema. Psych: euthymic mood Principal Diagnosis complete heart block Discharge Exam GENERAL: Alert and oriented x3. NAD, on RA. HEENT: No pallor, no icterus. Pupils equal, round and reactive to light. Oral mucosa moist. NECK: No JVD, no neck masses. HEART: S1 and S2 heard. Regular rate and rhythm. No murmur, no gallop. Lt upper chest w/ clean dressing c/d/i. LUE in sling. RESPIRATORY SYSTEM: Normal AP diameter. No accessory muscle use. No wheezing, bb crackles. ABDOMEN: Soft, bowel sounds present, nontender, no distention. CENTRAL NERVOUS SYSTEM: No facial droop. Speech is clear. Obeys simple commands. Moves extremities. EXTREMITIES: trace/No edema, no erythema seen. Discharge Data Allergies Allergy/AdvReac Type Severity Reaction Status Date / Time No Known Allergies Allergy Unverified 08/22/23 09:22 Consultations 08/22/23 08:51 ED Decision to Admit Stat 08/22/23 08:55 Consult Cardiology Routine Procedures Performed Operation Date: 08/22/23 13:00 Actual Procedures p Pacer with A/V Leads (Dual) - DO marilu Carty Bundle of his Recording - Lucy Tovar DO s Venogram, Unilateral - Lucy Tovar DO Ordered Studies 08/22/23 13:30 EP Lab Images for PACS ONCE Hospital Course (1) Complete heart block: (2) Hypertension: (3) GERD (gastroesophageal reflux disease): (4) HLD (hyperlipidemia): (5) Obesity: Plan Per prior attending with addendum: Mr. Mason is a 68-year-old male that presented to the ED today in complete heart block on heart monitor. PMH includes HTN, GERD, and obesity. Takes atenolol and lisinopril which he did not take this morning. Patient was recently started on phentermine term been for weight management over the last month and reports having insomnia and dizziness/lightheadedness since starting that medication. Lyme serology negative. Father young s/p cabg and had a pacemaker. ECHO EF 65 to 70%, mild concentric LVH, mild MR and trace TR. Patient will be admitted for further evaluation and management of his newly diagnosed complete heart block. Will admit to PCU, place temporary pacer pads, keep NPO, and await cardiology consultation. Complete heart block: Acute Admit to PCU No previous cardiac history outside of HTN Father had open heart sx and a pacer; at a young age. ECHO EF 65-70%, mild concentric LVH, mild MR, trace TR CXR noted pulmonary vascular congestion Did not take beta-blockers this morning Troponin negative Keep NPO; last eaten 08/20 pacer pads placed Lymes serology negative and TSH pending Cardiology Consultation placed; discussed with Dr. Guerra HTN: Chronic Takes atenolol and lisinopril/HCTZ; hold for now HLD: Chronic Last lipid panel 06/19/23; TG 219, HDL 52, LDL 50 Takes atorvastatin; continue GERD: Chronic Takes omeprazole; continue Obesity: Chronic Takes Phentermine which was recently started in June around when his symptoms started; hold Disposition: PCP: Dr. Curtis Code Status: Full Code VTE Prophylaxis: Teds and SCDs for now Addendum 08/23/2023: Patient was seen and examined at bedside as a follow-up of complete heart block status post pacer placement 08/22/2023. Patient reports feeling better today, is hemodynamically stable. Patient to follow-up with cardiology closely upon discharge. He denies any other symptoms today and would like to go home. He is being discharged with following instruction at the point of discharge: Follow-up with your primary care physician within a week time and likely you will need labs CBC/CMP/magnesium/phosphorus. Follow-up with your cardiology in 1 week time for wound checkup. You will likely need further evaluation with repeat echo, follow-up with your cardiology office. Hold your Lomaira at discharge given you have multiple cardiac complaints. Advise to find alternatives for your weight loss with discussion with your outpatient provider. Your hydrochlorothiazide has been discontinued due to your low sodium level, continue to monitor your blood pressure twice a day/maintain a log to take to your primary care physician for ongoing management of your blood pressure. Take your medications as prescribed. Follow activity recommendation as commented above. Please make sure that you are able to get your medications today by calling your pharmacy before you leave the hospital so that your treatment continuity is not broken. Home Health Attestation I certify that this patient is under my care and that I, or a physicians construction project assistant working with me, had a face to-face encounter that meets the home health jvah-ky-rziy encounter requirements with this patient. The encounter with the patient was in whole, or in part, for the following medical condition, which is the primary reason for home health care (list medical condition): I certify that, based on my findings, the following services are medically necessary home health services: My clinical findings support the need for the above services because: Further, I certify that my clinical findings support that this patient is homebound (i.e. absences from home require considerable and taxing effort and are for medical reasons or mandaeism services or infrequently or of short duration when for other reasons) because: Certification for Home Health Services: Based on the above findings, I certify that this patient is confined to the home and needs intermittent senior care care, physical therapy and/or speech therapy or continues to need occupational therapy. The patient is under my care, and I have initiated the establishment of the plan of care. This patient will be followed by a physician who will periodically review the plan of care. Total Time Total Time Spent Total Time Spent (In Minutes): 45 Discharge Plan Discharge Items Patient Disposition: Home - Self-Care Reason For Visit: SOB/BRADYCARDIA Discharge Diagnosis: complete heart block Activity: As commented below Activity Comment: do not raise the left elbow over the left shoulder for 1 month Lifting: No more than 10 pounds Lifting Comment: do not lift more than 10 pounds with the left arm for 2 weeks Bathing: Keep incision dry Bathing Comment: keep dressing on & dry until wound check next week Driving/Machine Use: Resume 1 day after discharge Non-emergency contact: Cloth Pattern Maker Call non-emergency contact if: you have any medication questions Follow-up/Referrals: Jose D Guerra DO [Cloth Pattern Maker] - (The Cardiology office will contact you for a follow up appointment/testing.) Lucy Tovar DO [Physician] - (The Cardiology office will contact you for a follow up appointment for a wound check /pacemaker interrogation.) Ravi Curtis MD [Primary Care Provider] - (Date & Time 08/26/2023 9:40 AM Provider Roberto Quintana MD Department Family Medicine [facility] ) Diet: Heart Healthy [facility] Attending Provider Instructions: device and wound check at [facility] next week Add Pulp Grinder Provider Instructions: Follow-up with your primary care physician within a week time and likely you will need labs CBC/CMP/magnesium/phosphorus. Follow-up with your cardiology in 1 week time for wound checkup. You will likely need further evaluation with repeat echo, follow-up with your cardiology office. Hold your Lomaira at discharge given you have multiple cardiac complaints. Advise to find alternatives for your weight loss with discussion with your outpatient provider. Your hydrochlorothiazide has been discontinued due to your low sodium level, continue to monitor your blood pressure twice a day/maintain a log to take to your primary care physician for ongoing management of your blood pressure. Take your medications as prescribed. Follow activity recommendation as commented above. Please make sure that you are able to get your medications today by calling your pharmacy before you leave the hospital so that your treatment continuity is not broken. Pending Studies at Discharge: No Stand-Alone Forms: My [facility], Smoking Cessation Medications and DC Order Prescriptions: New lisinopril 20 mg Tablet 20 mg PO DAILY Qty: 30 0RF metoprolol succinate 25 mg Tablet Extended Release 24 Hr 25 mg PO QAM Qty: 30 0RF Continued atorvastatin 40 mg tablet 40 mg PO DAILY omeprazole 40 mg capsule,delayed release(DR/EC) 40 mg PO DAILY tadalafil [Cialis] 5 mg Tablet 5 mg PO DAILY PRN (Reason: Unknown) Nugenix 2 cap PO QAM Discontinued lisinopril-hydrochlorothiazide 20-25 mg tablet 1 tab PO DAILY atenolol 50 mg tablet 50 mg PO DAILY Lomaira 8 mg Tablet 8 mg PO TID Rx Instructions: must administer 30 minutes before meals/food Pt takes this BID Discharge Orders: Discharge Order (Routine); Ordered 08/23/23 Ordered By: Gaby Tran/Other Patient Handouts: Pacemaker Implant Dc Admission Data Admit Date/Time: 08/22/23 08:55 Attending Provider: Gaby Damico Admit Provider: Zhang Jacobs Primary Care Provider: Ravi Curtis Other Providers: Zhang Jacobs; Jose D Guerra
--- OUTSIDE RECORDS SUMMARY | 2023-08-24 08:02 | External Medical Summary | Summary of Care ---
Author Name Unknown Organization [facility] Address [address] [facility] [place] [address] Phone [phone] Care Team Providers Care Apron Operator Name Role Phone Roberto Quintana MD Primary Care Provider Encounter Details Date Type Department Care Team (Late st Contact Info) Description 06/20/2023 Orders Only Family Medicine [address] [place] [id number] Ravi Curtis MD [address] [place] [address] [place] [id number] Allergies No known active allergiesdocumented as of this encounter (statuses as of 06/20/2023) Medications Medication Sig Dispensed Refills Start Date End Date Status PABLITO MULTIVITAMIN FOR MEN PO TABS 1 TABLET DAILY 0 09/19/2010 Active Atenolol 50 MG Oral Tablet (Tenormin)Indications :Primary hypertension One pill by mouth once a day 90 Tablet 01/03/2023 Active Atorvastatin Calcium 40 MG Oral Tablet (Lipitor)Indications: Dyslipidemia, goal LDL below 100 take one pill by mouth at bedtime 90 Tablet 01/03/2023 Active Lisinopril-hydroCHLOR Othiazide 20-25 MG Oral TabletIndications:Shanel dimitris hypertension Take 2 Tablets by mouth in the morning. in the morning.. 180 Tablet 1 01/03/2023 Active metFORMIN HCl 500 MG Oral Tablet (Glucophage)Indicatio ns:Metabolic syndrome Take 1 Tablet by mouth 2 times a day with morning and evening meals. 180 Tablet 1 01/03/2023 Active Omeprazole 40 MG Oral Capsule Delayed Release (PriLOSEC)Indications :takes in the evening Take one capsule daily before eating 90 Capsule 1 01/03/2023 Active Tadalafil 5 MG Oral Tablet (Cialis)Indications:I mpotence of organic origin one daily 90 Tablet 1 01/03/2023 Active documented as of this encounter (statuses as of 06/20/2023) Active Problems Problem Noted Date Diagnosed Date Hyperlipidemia LDL goal <100 01/02/2022 Primary hypertension 06/24/2009 ADVANCE DIRECTIVE INFORMATION 06/13/2005 Overview: No, Advance Directive brochure given to patient at prior appointment. Gastroesophageal reflux dise ase with esophagitis without hemorrhage BMI 34.0-34.9,adult Overview: 236 lbs Impotence of organic origin Metabolic syndrome documented as of this encounter (statuses as of 06/20/2023) Resolved Problems Problem Noted Date Diagnosed Date Resolved Date Benign neoplasm of colon 06/24/2006 Overview: repeat colonoscopy in 5 years documented as of this encounter (statuses as of 06/20/2023) Immunizations Name Administration Dates Next Due COVID-19 mRNA, LNP-s, No Pre serve, 2-Dose Series (Moderna) 08/05/2020,07/08/2020 COVID-19, mRNA, LNP-s, PF, B ooster, 100mcg/0.5mg (Moderna) 04/05/2021 Pneumococcal Conjugate Vacc, 13 Valent (Prevnar) 12/27/2020 Pneumococcal Polysaccharide PPV23 (Pneumovax) 01/02/2022 Season Influenza, Quad, PF, Adjuvanted, 65+ Yrs, IM (FLUAD) 05/31/2020 Seasonal Influenza, PF, 6 M & above, IM , (FluLaval or Fluzone) 12/21/2018,05/16/2018,05/14/2017 Seasonal Influenza, Quadriva lent Hd (Fluzone Hd) 01/03/2023,01/02/2022,12/27/2020 Seasonal Influenza, Quadriva lent, No Preserve, IM 05/08/2016,05/03/2015 Seasonal Influenza, Quadriva lent, No Preserve, Mdck 12/16/2018 Seasonal Influenza, Split, I IV3, With Preserve, Inj 04/26/2014 TDAP (age 10 and older)(Boostrix) 11/12/2017 TDAP (age 11 and older)(Adacel) 12/19/2007 Zoster Vaccine Recombinant (Shingrix) 05/31/2020 ,05/22/2019 documented as of this encounter Social History Tobacco Use Types Packs/Day Years Used Date Smoking Tobacco: Never Smokeless Tobacco: Never Alcohol Use Standard Drinks/Week Comments Yes 0 (1 standard drink = 0.6 oz pur e alcohol) weekends PHQ-2 Answer Date Recorded PHQ-2 Score -1 01/10/2020 Sex and Gender Information Value Date Recorded Sex Assigned at Not on file Gender Identity Not on file Sexual Orientation Not on file Job Start Date Occupation Industry Not on file Not on file Not on file documented as of this encounter Plan of Treatment Upcoming Encounters Date Type Department Care Team (Late st Contact Info) Description 07/05/2023 9:00 AM EDT Office Visit Family Medicine [address] [place] [id number] Ravi Curtis MD [address] [place] [address] [place] [address] Scheduled Procedures Name Priority Associated Diagnoses Date/Ti me COLONOSCOPY FLEXIBLE PROXIMAL DIAGNOSTIC Recall History of colon polyps Health Maintenance Due Date Last Done Comments Depression Screening 11/24/2020 11/25/2019 COVID-19 Vaccine ( season) 2022 04/05/2021, 08/05/2020, 07/08/2020 B-12 07/04/2023 07/03/2022, 02/0 12/2020, 05/22/2019, Additional history exists GFR 06/19/2024 06/19/2023, 06/20, 06/27/2021, Additional history exists Albumin/Creatinine Ratio 06/27/2024 022, 05/31/2020, 05/22/2019 Diabetes Screening 06/19/2026 06/19/2023, 0 07/03/2022, 07/03/2022, Additional history exists COLONOSCOPY-EVERY 5 YRS AGES 18-100 05/18/2027 05/18/2022, 05/18/2022, 12/18/2016, Additional history exists DTaP,Tdap,and Td Vaccines (3 - Td or Tdap) 11/13/2027 11/12/2017, 12/19/2007 Lipid Panel 06/19/2028 06/19/2023, 06/20, 06/27/2021, Additional history exists Zoster Vaccines Completed 05/31/2020, 05/22/2019 Pneumococcal Vaccine: 65+ Years Completed 01/02/2022, 12/27/2020 Influenza Vaccine (FLU shot) Completed , 01/02/2022, 12/27/2020, Additional history exists GARDASIL-HPV IMMUNIZATION SERIES Aged Out No longer eligible based on patient's age to complete this topic Hepatitis B Aged Out No longer eligi ble based on patient's age to complete this topic MENINGOCOCCAL (MENACTRA/MENVEO) Aged Out No longer eligible based on patient's age to complete this topic documented as of this encounter Medical Devices Not on filedocumented as of this encounter Procedures Procedure Name Priority Date/Time Associated Diagnosis Comments TSH WITH FREE T4 IF INDICATED Routine 06/19/2023 CHEMISTRY-OUTSIDE Routine 06/19/2023 documented in this encounter Results * TSH WITH FREE T4 IF INDICATED (06/19/2023) TSH - OUTSIDE LAB 1.280 0.360 - 3.740 MCIU/ML OUTSIDE LAB (SEE SCANNED REPORT) T4, FREE - OUTSIDE LAB 0.93 0.76 - 1.46 NG/DL OUTSIDE LAB (SEE SCANNED REPORT) Blood Venous blood specimen / Unknown 06/19/2023 [facility] BLOOD ORDERABLE S OUTSIDE LAB (SEE SCANNED REPORT) * (ABNORMAL) CHEMISTRY-OUTSIDE (06/19/2023) Not all results display below - see scan for full detail OUTSIDE LAB (SEE SCANNED REPORT) Comment:SCAN INCLUDES: CBCD, CMP, HGB A1C, IRON/TIBC, LIPID PANEL, T4 FREE, TSH CREATININE-OUTSID E LAB 0.98 0.70 - 1.30 MG/DL OUTSIDE LAB (SEE SCANNED REPORT) EGFR-OUTSIDE LAB 84 >=60 ML/MIN OUTSIDE LAB (SEE SCANNED REPORT) POTASSIUM-OUTSIDE LAB 3.5 3.5 - 5.1 MMOL/L OUTSIDE LAB (SEE SCANNED REPORT) GLUCOSE-OUTSIDE LAB 111(A) 70 - 110 MG/DL OUTSIDE LAB (SEE SCANNED REPORT) HOURS FASTING OUTSID E LAB (SEE SCANNED REPORT) TRIGLYCERIDES-OUT SIDE LAB 219(A) 30 - 200 MG/DL OUTSIDE LAB (SEE SCANNED REPORT) CHOLESTEROL-OUTSI DE LAB 146 <=200 MG/DL OUTSIDE LAB (SEE SCANNED REPORT) HDL-OUTSIDE LAB 52 40 - 59 MG/DL OUTSIDE LAB (SEE SCANNED REPORT) CHOL/HDL RATIO-OUTSIDE LAB 2.8(L) 4.0 - 7.0 OUTSIDE LA B (SEE SCANNED REPORT) LDL (CALCULATED)-OUTS CHUCK LAB 50.2 <=100 MG/DL OUTSIDE LAB (SEE SCANNED REPORT) LDL (DIRECT MEASURE)-OUTSIDE LAB OUTSIDE LAB (SEE SCANNED REPORT) HEMOGLOBIN, Q1G-WFODUGB LAB 5.5 3.8 - 5.6 % OUTSIDE LAB (SEE SCANNED REPORT) PHOSPHORUS-OUTSID E LAB OUTSIDE LAB (SEE SCANNED REPORT) PTH-OUTSIDE LAB OUTS CHUCK LAB (SEE SCANNED REPORT) MICROALBUMIN RATIO-OUTSIDE LAB OUTSIDE LA B (SEE SCANNED REPORT) PROTEIN, UA-OUTSIDE LAB OUTSIDE LAB (SEE SCANNED REPORT) HEMOGLOBIN-OUTSID E LAB 15.7 13.5 - 18.0 GM/DL OUTSIDE LAB (SEE SCANNED REPORT) 06/19/2023 [facility] OUTSIDE LAB (SEE SCANNED REPORT) documented in this encounter Care Teams Apron Operator Relationship Specialty Start Date End Date Roberto Quintana MD [address] [place] [address] [place] [phone] PCP - General Family Medicine 11/18/18 documented as of this encounter
--- OUTSIDE RECORDS SUMMARY | 2023-08-24 08:02 | External Medical Summary | Summary of Care ---
Author Name Unknown Organization [facility] Address [address] [facility] [place] [address] Phone [phone] Care Team Providers Care Unit Supervisor Name Role Phone Ravi Curtis MD Primary Care Provide r Reason for Visit * Reason Comments Re-Check Encounter Details Date Type Department Care Team (Late st Contact Info) Description 07/08/2023 2:00 PM EDT Office Visit Family Medicine [address] [place] [phone] Bipin Hernandez [address] [place] [address] Metabolic syndrome*; Dyslipidemia, goal LDL below 100; BMI 35.0-35.9,adult; Gastroesophageal reflux disease with esophagitis without hemorrhage; Primary hypertension; Impotence of organic origin; Impaired fasting glucose Allergies No known active allergiesdocumented as of this encounter (statuses as of 07/08/2023) Medications Medication Sig Dispensed Refills Start Date End Date Status PABLITO MULTIVITAMIN FOR MEN PO TABS 1 TABLET DAILY 0 09/19/2010 Active Atenolol 50 MG Oral Tablet (Tenormin)Indicati ons:Primary hypertension One pill by mouth once a day 90 Tablet 1 01/03/2023 Active Atorvastatin Calcium 40 MG Oral Tablet (Lipitor)Indicatio ns:Dyslipidemia, goal LDL below 100 take one pill by mouth at bedtime 90 Tablet 1 01/03/2023 Active Lisinopril-hydroCH LOROthiazide 20-25 MG Oral TabletIndications: Primary hypertension Take 2 Tablets by mouth in the morning. in the morning.. 180 Tablet 1 01/03/2023 Active Omeprazole 40 MG Oral Capsule Delayed Release (PriLOSEC)Indicati ons:takes in the evening Take one capsule daily before eating 90 Capsule 1 01/03/2023 Active Tadalafil 5 MG Oral Tablet (Cialis)Indication s:Impotence of organic origin one daily 90 Tablet 1 01/03/2023 Active Lomaira 8 MG Oral Tablet (Phentermine HCl) Take 8 mg by mouth in the morning and 8 mg at noon and 8 mg in the evening. 0 Active metFORMIN HCl 500 MG Oral Tablet (Glucophage)Indica tions:Metabolic syndrome Take 1 Tablet by mouth 2 times a day with morning and evening meals. 180 Tablet 1 01/03/2023 07/08/2023 Discontinued (Medication/ Dose Changed) documented as of this encounter (statuses as of 07/08/2023) Active Problems Problem Noted Date Diagnosed Date Hyperlipidemia LDL goal <100 01/02/2022 Primary hypertension 06/24/2009 ADVANCE DIRECTIVE INFORMATION 06/13/2005 Overview: No, Advance Directive brochure given to patient at prior appointment. Gastroesophageal reflux dise ase with esophagitis without hemorrhage BMI 35.0-35.9,adult Overview: 236 lbs Impotence of organic origin Metabolic syndrome documented as of this encounter (statuses as of 07/08/2023) Resolved Problems Problem Noted Date Diagnosed Date Resolved Date Benign neoplasm of colon 06/24/2006 Overview: repeat colonoscopy in 5 years documented as of this encounter (statuses as of 07/08/2023) Immunizations Name Administration Dates Next Due COVID-19 [...] on file documented as of this encounter Last Filed Vital Signs Vital Sign Reading Time Taken Comments Blood Pressure 132/76 07/08/2023 1:49 PM EDT Pulse 75 07/08/2023 1:49 PM EDT Temperature 35.9 C (96.7 F) 07/08/2023 1:49 PM ED T Respiratory Rate 16 07/08/2023 1:49 PM EDT Oxygen Saturation 98% 07/08/2023 1:49 PM EDT Inhaled Oxygen Concentration - - Weight 113.1 kg (249 lb 7 oz) 07/08/2023 1:49 PM EDT Height 177.8 cm (5' 10") 07/08/2023 1:49 PM EDT Body Mass Index 35.79 07/08/2023 1:49 PM EDT documented in this encounter Nursing Notes * Catherine Boudreaux LPN - 07/08/2023 1:49 PM EDT 6 month recheck. Going to a weight management doctor in [place] now. Is taking medicine for it. documented in this encounter Plan of Treatment Upcoming Encounters Date Type Department Care Team (Late st Contact Info) Description 10/08/2023 9:00 AM EDT Office Visit [address] [place] [phone] Bipin Hernandez CRNP [address] [place] [address] [place] [id number] 07/07/2024 7:20 AM EDT Office Visit [address] [place] [phone] Ravi Curtis MD [address] [place] [address] [place] [address] Scheduled Orders Name Type Priority Associated Diagnoses Orde r Schedule HEMOGLOBIN A1C Lab Routine BMI 35.0-35.9,adult Metabolic syndrome Impaired fasting glucose Expected: 10/08/2023 (Approximate), Expires: 07/07/2024 BASIC METABOLIC PANEL Lab Routine BMI 35.0-35.9,adult Primary hypertension Metabolic syndrome Expected: 10/08/2023 (Approximate), Expires: 07/07/2024 Scheduled Procedures Name Priority Associated Diagnoses Date/Ti me COLONOSCOPY FLEXIBLE PROXIMAL DIAGNOSTIC Recall History of colon polyps Health Maintenance Due Date Last Done Comments Depression Screening 11/24/2020 11/25/2019 COVID-19 Vaccine ( season) 2022 04/05/2021, 08/05/2020, 07/08/2020 GFR 06/19/2024 06/19/2023, 06/20, 06/27/2021, Additional history [...] Not on filedocumented as of this encounter Visit Diagnoses Diagnosis Metabolic syndrome- Primary Dysmetabolic Syndrome X Dyslipidemia, goal LDL below 100 Other and unspecified hyperlipidemia BMI 35.0-35.9,adult Body Mass Index 35.0-35.9, adult Gastroesophageal reflux disease with esophagitis without hemorrhage Primary hypertension Unspecified essential hypertension Impotence of organic origin Impaired fasting glucose documented in this encounter Care Teams Unit Supervisor Relationship Specialty Start Date End Date Ravi Curtis MD [address] [place] [address] [place] [address] PCP - General Family Medicine 07/08/23 documented as of this encounter
--- OUTSIDE RECORDS SUMMARY | 2023-08-24 08:02 | External Medical Summary | Summary of Care ---
Author Name Unknown Organization [facility] Address [address] [facility] [place] [address] Phone [phone] Care Team Providers Care Warehouse Freight Handler Name Role Phone Ravi Curtis MD Primary Care Provide r Reason for Visit * Reason Onset Date Comments Health Maintenance 08/01/2023 Encounter Details Date Type Department Care Team (Late st Contact Info) Description 08/01/2023 Telephone Family Medicine [address] [place] [phone] Ravi Curtis MD [address] [place] [address] [place] [address] Health Maintenance Allergies No known active allergiesdocumented as of this encounter (statuses as of 08/01/2023) Medications Medication Sig Dispensed Refills Start Date [...] at bedtime 90 Tablet 1 01/03/2023 Active Lisinopril-hydroCHLOR Othiazide 20-25 MG Oral TabletIndications:Shanel dimitris hypertension Take 2 Tablets by mouth in the morning. in the morning.. 180 Tablet 01/03/2023 Active Omeprazole 40 MG Oral Capsule [...] 8 mg in the evening. 0 Active documented as of this encounter (statuses as of 08/01/2023) Active Problems Problem Noted Date Diagnosed Date Hyperlipidemia LDL goal <100 01/02/2022 Primary hypertension 06/24/2009 ADVANCE DIRECTIVE INFORMATION 06/13/2005 Overview: No, Advance Directive brochure given to patient at prior appointment. Gastroesophageal reflux dise ase with esophagitis without hemorrhage BMI 35.0-35.9,adult Overview: 236 lbs Impotence of organic origin Metabolic syndrome documented as of this encounter (statuses as of 08/01/2023) Resolved Problems Problem Noted Date Diagnosed Date Resolved Date Benign neoplasm of colon 06/24/2006 Overview: repeat colonoscopy in 5 years documented as of this encounter (statuses as of 08/01/2023) Immunizations Name Administration Dates Next Due COVID-19 [...] on file documented as of this encounter Miscellaneous Notes * Telephone Encounter - Bobbi Salgado LPN - 08/01/2023 2:01 PM EDT Care Gaps Comprehensive Care Outreach Last Office/Telemedicine Visit: 07/08/2023 (in office), Visit date not found (telemedicine) Next Office Visit: 10/08/2023 Hemoglobin AIC Results: Lab Results Component Value Date/Time HEMOGLOBIN A1C - [facility] 5.4 07/03/2022 09:40 AM HEMOGLOBIN A1C - [facility] 5.6 06/27/2021 09:29 AM HEMOGLOBIN A1C - [facility] 5.5 05/16/2018 08:26 AM BP Readings from Last 1 Encounters: 07/08/23 132/76 Reviewed Health Maintenance below: Health Maintenance Topic Date Due Depression Screening 11/24/2020 COVID-19 Vaccine ( season) 2022 GFR 06/19/2024 Albumin/Creatinine Ratio 06/27/2024 awv Care Gap Outreach Action Taken: Unable to reach won't ring through documented in this encounter Plan of Treatment Upcoming Encounters Date Type Department Care Team (Late st Contact Info) Description 10/08/2023 9:00 AM EDT Office Visit [address] [place] [phone] Bipin Hernandez CRNP [address] [place] [address] [place] [address] 07/07/2024 7:20 AM EDT Office Visit [address] [place] [phone] Ravi Curtis MD [address] [place] [address] [place] [address] Scheduled Procedures Name Priority Associated Diagnoses Date/Ti [...] Not on filedocumented as of this encounter Care Teams Warehouse Freight Handler Relationship Specialty Start Date End Date Ravi Curtis MD [address] [place] [address] [place] [address] PCP - General Family Medicine 07/08/23 documented as of this encounter
--- OUTSIDE RECORDS SUMMARY | 2023-08-24 08:02 | External Medical Summary | Summary of Care ---
Author Name Unknown Organization [facility] Address [address] [facility] [place] [address] Phone [phone] Care Team Providers Care Counter Server Name Role Phone Ravi Curtis MD Primary Care Provide r Reason for Visit * Reason Comments Outpatient Testing Encounter Details Date Type Department Care Team (Late st Contact Info) Description 08/15/2023 7:40 AM EDT Laboratory Laboratory [address] [place] [phone] [place] [address] BMI 35.0-35.9,adult; Metabolic syndrome; Impaired fasting glucose; Primary hypertension Allergies No known active allergiesdocumented as of this encounter (statuses as of 08/15/2023) Medications Medication Sig Dispensed Refills Start Date [...] as of this encounter (statuses as of 08/15/2023) Active Problems Problem Noted Date Diagnosed Date Hyperlipidemia LDL goal <100 01/02/2022 Primary hypertension 06/24/2009 ADVANCE DIRECTIVE INFORMATION 06/13/2005 Overview: No, Advance Directive brochure given to patient at prior appointment. Gastroesophageal reflux dise ase with esophagitis without hemorrhage BMI 35.0-35.9,adult Overview: 236 lbs Impotence of organic origin Metabolic syndrome documented as of this encounter (statuses as of 08/15/2023) Resolved Problems Problem Noted Date Diagnosed Date Resolved Date Benign neoplasm of colon 06/24/2006 Overview: repeat colonoscopy in 5 years documented as of this encounter (statuses as of 08/15/2023) Immunizations Name Administration Dates Next Due COVID-19 [...] Description 10/08/2023 9:00 AM EDT Office Visit [address] [place] [phone] Bipin Hernandez CRNP [address] [place] [address] [place] [address] 07/07/2024 7:20 AM EDT Office Visit Family Medicine [address] [place] [phone] Ravi Curtis MD [address] [place] [address] [place] [address] Pending Results Name Type Priority Associated Diagnoses Date /Time HEMOGLOBIN A1C Lab Routine BMI 35.0-35.9,adult Metabolic syndrome Impaired fasting glucose 08/15/2023 7:35 AM EDT BASIC METABOLIC PANEL Lab Routine BMI 35.0-35.9,adult Primary hypertension Metabolic syndrome 08/15/2023 7:35 AM EDT Scheduled Procedures Name Priority Associated Diagnoses Date/Ti [...] as of this encounter Visit Diagnoses Diagnosis BMI 35.0-35.9,adult Body Mass Index 35.0-35.9, adult Metabolic syndrome Dysmetabolic Syndrome X Impaired fasting glucose Primary hypertension Unspecified essential hypertension documented in this encounter Care Teams Counter Server Relationship Specialty Start Date End Date Ravi Curtis MD [address] [place] [address] [place] [address] PCP - General Family Medicine 07/08/23 documented as of this encounter
--- OUTSIDE RECORDS SUMMARY | 2023-08-24 08:02 | External Medical Summary | Summary of Care ---
Author Name Unknown Organization [facility] Address [address] [facility] [place] [address] Phone [phone] Care Team Providers Care Benefits Analyst Name Role Phone Roberto Quintana MD Primary Care Provider Encounter Details Date Type Department Care Team (Late st Contact Info) Description 06/19/2023 Result Scan Unspecified Department <No scans attached> Allergies No known active allergiesdocumented as of this encounter (statuses as of 06/21/2023) Medications Medication Sig Dispensed Refills Start Date [...] with morning and evening meals. 180 Tablet 01/03/2023 Active Omeprazole 40 MG Oral Capsule Delayed Release (PriLOSEC)Indications :takes in the evening Take one capsule daily before eating 90 Capsule 1 01/03/2023 Active Tadalafil 5 MG Oral Tablet (Cialis)Indications:I mpotence of organic origin one daily 90 Tablet 1 01/03/2023 Active documented as of this encounter (statuses as of 06/21/2023) Active Problems Problem Noted Date Diagnosed Date Hyperlipidemia LDL goal <100 01/02/2022 Primary hypertension 06/24/2009 ADVANCE DIRECTIVE INFORMATION 06/13/2005 Overview: No, Advance Directive brochure given to patient at prior appointment. Gastroesophageal reflux dise ase with esophagitis without hemorrhage BMI 34.0-34.9,adult Overview: 236 lbs Impotence of organic origin Metabolic syndrome documented as of this encounter (statuses as of 06/21/2023) Resolved Problems Problem Noted Date Diagnosed Date Resolved Date Benign neoplasm of colon 06/24/2006 Overview: repeat colonoscopy in 5 years documented as of this encounter (statuses as of 06/21/2023) Immunizations Name Administration Dates Next Due COVID-19 [...] 9:00 AM EDT Office Visit Family Medicine [address] [place] [phone] Ravi Curtis MD [address] [place] [address] [place] [address] Scheduled Procedures Name Priority Associated Diagnoses [...] Procedure Name Priority Date/Time Associated Diagnosis Comments OUTSIDE LAB RESULTS 06/19/2023 documented in this encounter Results * OUTSIDE LAB RESULTS (06/19/2023) 06/19/2023 No Physician Data Unknown LABORATORY documented in this encounter Care Teams Benefits Analyst Relationship Specialty Start Date End Date Roberto Quintana MD [address] [place] [address] [place] [phone] PCP - General Family Medicine 11/18/18 documented as of this encounter
--- OUTSIDE RECORDS SUMMARY | 2023-08-24 08:02 | External Medical Summary ---
Author Name Unknown Address Unknown Organization [id number]:[facility] [address] [place] [address] Laboratory Report Ordering Provider Test Date Status JUDIE LING 08/15/2023 07:35:45 Final Observation Date Value Abnormality Reference (Units ) Status BUN 08/15/2023 07:35:45 8 6-20 (mg/dL) Final Creatinine 08/15/2023 07:35:45 0.9 0.6-1.2 (mg/dL) Final Glomerular filtration rate/1.73 sq M.predicted [Volume Rate/Area] in Serum, Plasma or Blood by Creatinine-based formula (CKD-EPI) 08/15/2023 07:35:45 89 >=60 (mL/min) Final eGFR is calculated based on the CKD-EPI 2020 equation Sodium 08/15/2023 07:35:45 137 135-146 (m mol/L) Final Potassium 08/15/2023 07:35:45 3.8 3.5-5.1 (m mol/L) Final Cl 08/15/2023 07:35:45 97 Below low normal 98- 107 (mmol/L) Final CO2 08/15/2023 07:35:45 26 22-32 (mmo l/L) Final Anion gap 08/15/2023 07:35:45 14 7-15 (mmol /L) Final Glucose 08/15/2023 07:35:45 105 70-120 (mg /dL) Final Calcium 08/15/2023 07:35:45 9.2 8.4-10.2 ( mg/dL) Final Performing Location [facility] [place] [facility] [address] [place] [address]
--- NOTE | 2023-08-25 19:29 | Electrocardiogram Report ---
Test Reason : Blood Pressure : / mmHG Vent. Rate : 034 BPM Atrial Rate : 034 BPM P-R Int : 000 ms QRS Dur : 132 ms QT Int : 600 ms P-R-T Axes : 065 043 031 degrees QTc Int : 451 ms Marked sinus bradycardia with A-V dissociation and Idioventricular rhythm Abnormal ECG No previous ECGs available Confirmed by Brock Fox ([id number]) on 08/25/2023 7:29:04 PM Referred By: REFERRED SELF Confirmed By:Brock Fox
--- NOTE | 2023-09-03 10:25 | Operative Report ---
Post Operative Report DICTATED BY:Lucy Tovar D.O. DATE OF PROCEDURE: 08/22/2023 PREOPERATIVE DIAGNOSES: Complete heart block POSTOPERATIVE DIAGNOSIS: Same PROCEDURE: A dual-chamber rate responsive permanent pacemaker and intracardiac electrogram His bundle recordings, along with a peripheral venogram under fluoroscopic guidance. SURGEON: Lucy Tovar DO ASSISTANTS: None. ANESTHESIA: Monitored conscious sedation administered under my supervision by Yelena Portillo. Start time 13:58, end time 15:17, a total of 5 mg of Versed and 125 mcg of fentanyl. INTRAVENOUS FLUIDS: 160 mL. CONTRAST: 24 mL. ANTIBIOTICS: 2 grams of Ancef. ADDITIONAL MEDICATIONS: none BLOOD LOSS: 50 mL. URINE OUTPUT: Not applicable. SPECIMENS: None. FINDINGS: See below. DRAINS: None. COMPLICATIONS: None. CONDITION: Stable. INDICATIONS: This is a 68-year-old gentleman who has a past medical history HTN, HLD, possible bicuspid AV. He was admitted to [facility] due to dizziness and near syncope found to be in CHB and was recommended a pacemaker prior to discharge. CONSENT: Consent was obtained prior to the patient going into the electrophysiology lab. The patient was informed of the risks, benefits, and alternatives to the procedure. Risks include, but not limited to, sudden cardiac , cardiac arrhythmias, cerebrovascular accident, myocardial infarction, injury to his blood vessels, chamber of the heart and lung, bleeding and infection. The patient understood these risks and agreed to the procedure as planned. Informed consent was obtained. DESCRIPTION OF PROCEDURE: The patient was brought into electrophysiology lab in a fasting state. He was connected to continuous cardiac monitoring. A timeout was performed to ensure the patient's identity and procedure correctly. He was prepped and draped in the left infraclavicular space in normal surgical standard fashion. Monitored conscious sedation was given throughout the procedure for the patient's comfort level. Questa precautions were maintained throughout the procedure. Prophylactic antibiotics were given prior to incision. A 20 mL of 1% lidocaine and bupivacaine mixture were given in the left deltopectoral groove. An incision was made in the left deltopectoral groove. Blunt dissection was performed down to the pectoralis muscle. Then, using blunt dissection over the pectoralis muscle within the pectoral fascia, a pacemaker pocket was created. Then, a peripheral venogram was performed to identify the axillary vein.Of ntoe I did end up doing 2 peripheral venograms as I was having slight difficulty in getting access. Venous axillary access was obtained through a needlestick. A guidewire was inserted without any resistance. A 6- Andorran sheath was inserted over the guidewire without any resistance. Dilator was removed and a second guidewire was inserted through the sheath to allow for retained venous access. Then a 9 Andorran sheath was inserted over one of the guidewires. The guidewire and dilator were removed. Then, the CPS Hand Laster 3D medium sheath was inserted through the 9-Andorran sheath over a Glidewire into the right ventricle. The Glidewire and dilator were removed. Then, the left bundle lead was advanced through the sheath and intracardiac electrogram His bundle recordings were performed when the camera was in LEE 10. Once I found where the His bundle is, see below for results, I then moved the camera to LEE 30 and marked where the His bundle was on my fluoroscopy screen. I came down about 2 cm from this in a line that would extend out to the apex and then started coming on pacing. Once I found an area where I had a nice W formed pace complex in my lead V1, I then moved the camera to VIETNAMESE 30. Then the helix was extended into the septum. Then the helix locking tool was placed. Then the lead was screwed further into the septum while pacing by giving slow clockwise turns. The paced complex changed to a nice R' in V1 and the pacing stim to peak QRS in V6 was good. Of note, I had to reposition the lead a number of times. I tried the large curved CPS follow up specialist 3D sheath as well and still did not have success in advancing the lead. I went back to the medium curved sheath and then finally was able to advance the lead and get a good pacing complex. I then gave contrast through the sheath to see how far the lead was into the septum and then I slit the CPS Hand Laster 3D medium sheath under fluoroscopic guidance and left the 9-Andorran sheath in while I positioned the right atrial lead. A 6-Andorran sheath was inserted over the retained guidewire, the guidewire and dilator removed. The right atrial lead was then advanced into right atrium and positioned into right atrial appendage under fluoroscopic guidance. There was adequate pacing and sensing thresholds and no diaphragmatic stimulation with high output pacing. The 6-Andorran sheath was peeled away and the lead was fixated to the pectoralis muscle using 0 silk suture. The 9-Andorran sheath around the left bundle lead was peeled away and the lead was fixated to pectoralis muscle using 0 silk suture. The pocket was flushed with copious amounts of vancomycin and saline wash and inspected for hemostasis. The leads were then attached to the pulse generator making sure the pins were in appropriate position, passed set screws, and set screws were all tightened. Pulse generator was then placed in the antibiotic pouch followed then by being placed in the pocket, making sure the leads were lying flat beneath the device. The incision was closed in a 3-layer fashion using 2-0 Vicryl interrupted suture, followed by 3-0 Vicryl interrupted suture, followed by 4-0 Monocryl running stitch. Then a primaseal dressing was placed EQUIPMENT: 1. Pulse generator is a [facility] MRI Model Number [id number] SN: [id number]. 2. Right atrial lead, [employer]Talk[employer] Tendril STS [id number] SN: [id number] 3. Left bundle lead, Mackenzie SJM Tendril STS [id number] SN: [id number] INTRAPROCEDURAL FINDINGS: 1. Intracardiac electrogram His bundle recordings, AH is 120 milliseconds, HV is 74 milliseconds. 2. Right atrial lead, P waves 3.7 millivolts, impedance 489 ohms, threshold 1 volts at 0.4 milliseconds. 3. Left bundle lead, R waves 9.3 millivolts, impedance 799 ohms, threshold 1.1 volts at 0.4 milliseconds. FINAL MEASUREMENTS THROUGH THE DEVICE: 1. Right atrial lead, P waves 3.4 millivolts, impedance 530 ohms, threshold 1 volt at 0.4 milliseconds. 2. Left bundle lead, R waves 7.7 millivolts, impedance 760 ohms, threshold 0.5 volts at 0.4 milliseconds. FINAL PARAMETERS: DDD 60/120, right atrial amplitude 3.5 volts, pulse width 0.4 milliseconds, sensitivity 0.5 millivolts. Left bundle lead amplitude 3.5 volts, pulse width 0.4 milliseconds, sensitivity 2 millivolts. IMPRESSION: Successful dual chamber rate responsive permanent pacemaker under fluoroscopic guidance along with peripheral venogram and intracardiac electrogram His bundle recordings, all under fluoroscopic guidance secondary to complete heart block PLAN: Monitor the patient post-procedure. A 12-lead ECG, chest x-ray. He is not to lift the left elbow or left shoulder for 1 month. He cannot lift more than 10 pounds with the left arm for 2 weeks. He is to keep the dressing on and dry until his wound check next week.
== END 2023-08-23 14:57 | disposition home or self-care (01) | DRG 242 ==
LOC: ED 07:18 → SUATTDRO 08:55 → 2E 08:55